=== PATIENT | female | born 1970 | race American Indian/Alaskan Native ===

== ENCOUNTER 2017-04-20 19:14 | Emergency (ER) | payer SELFPAY ==
[2017-04-20 19:14] VITALS: BMI 40.8
[2017-04-20 19:46] VITALS: TEMP 99.1
--- NOTE | 2017-04-20 20:19 | ED PDOC ---
Arrival/HPI - General Historian: Patient - General Chief Complaint: Weakness/Neurological Deficit Time Seen by Provider: 04/20/17 19:47 - History of Present Illness Narrative History of Present Illness (Text): 04/20/17 20:17 46yo female with PMhx of Anemia present with complaint of right wrist pain that radiates to her elbow with intermittent paresthesia x weeks. Also reports b/l foot/ankle tingling and numbness x 3days. 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 Right hand pain is usually worse while typing. She denies trauma, focal weakness, aphasia, chest pain, SOB, recent travel, OCP use, recent surgery, any other complaint. (Thom,Hadley A) Past Medical History - Provider Review Nursing Documentation Reviewed: Yes - Past History Past History: No Previous - Cardiac Hx Cardiac Disorders: No - Pulmonary Hx Respiratory Disorders: No - Neurological Hx Neurological Disorder: No - HEENT Hx HEENT Disorder: No - Renal Hx Renal Disorder: No - Endocrine/Metabolic Hx Endocrine Disorders: No - Hematological/Oncological Hx Blood Disorders: No - Integumentary Hx Dermatological Disorder: No - Musculoskeletal/Rheumatological Hx Falls: No - Gastrointestinal Hx Gastrointestinal Disorders: No - Psychiatric Hx Psychophysiologic Disorder: No Hx Depression: (pt denies) Hx Substance Use: No Other/Comment: pt denies feeling deoressed when questioned - Surgical History Hx Section: Yes Family/Social History - Physician Review Nursing Documentation Reviewed: Yes Family/Social History: Unknown Family HX Smoking Status: Never Smoked Hx Alcohol Use: No Hx Substance Use: No Allergies/Home Meds Allergies/Adverse Reactions: Allergies No Known Allergies Allergy (Verified 02/23/16 10:31) Review of Systems - Physician Review All systems were reviewed & negative as marked: Yes - Review of Systems Constitutional: Normal Eyes: Normal ENT: Normal Respiratory: Normal Cardiovascular: Normal Gastrointestinal: Normal Genitourinary Female: Normal Musculoskeletal: Arthralgias (Right hand pain) Skin: Normal Neurological: Normal Endocrine: Normal Hemo/Lymphatic: Normal Psychiatric: Normal Physical Exam Vital Signs Reviewed: Yes Temperature: Afebrile Blood Pressure: Normal Pulse: Regular Respiratory Rate: Normal Appearance: Positive for: Well-Appearing, Non-Toxic, Comfortable Pain Distress: None Mental Status: Positive for: Alert and Oriented X 3 - Systems Exam Head: Present: Atraumatic, Normocephalic Pupils: Present: PERRL Extroacular Muscles: Present: EOMI Conjunctiva: Present: Normal Mouth: Present: Moist Mucous Membranes Neck: Present: Normal Range of Motion Respiratory/Chest: Present: Clear to Auscultation, Good Air Exchange. No: Respiratory Distress, Accessory Muscle Use Cardiovascular: Present: Regular Rate and Rhythm, Normal S1, S2. No: Murmurs Abdomen: Present: Normal Bowel Sounds. No: Tenderness, Distention, Peritoneal Signs Back: Present: Normal Inspection Upper Extremity: Present: Normal ROM, NORMAL PULSES, Tenderness (Mild tenderness over right dorsal wrist), Neurovascularly Intact, Capillary Refill < 2s, Other (Negative Tinnel and phalen test). No: Cyanosis, Edema, Swelling, Erythema, Temperature Abnormalties, Deformity Lower Extremity: Present: Normal Inspection, NORMAL PULSES, Normal ROM, Neurovascularly Intact. No: Edema, CALF TENDERNESS, Cyanosis, Tenderness, Swelling, Erythema, Deformity, Temperature Abnormalties Neurological: Present: GCS=15, CN II-XII Intact, Speech Normal, Motor Func Grossly Intact, Normal Sensory Function, Normal Cerebellar Funct, Norm Deep Tendon Reflexes, Gait Normal, Other (No focal neurological deficit) Skin: Present: Warm, Dry, Normal Color. No: Rashes Psychiatric: Present: Alert, Oriented x 3, Normal Insight, Normal Concentration Vital Signs Temp Pulse Resp BP Pulse Ox 04/20/17 22:49 76 16 160/93 H 98 04/20/17 21:23 80 17 100 04/20/17 19:42 99.1 F 92 H 18 158/88 H 99 Medical Decision Making ED Course and Treatment: I was available for consultation during PA evaluation. The chart was reviewed by me, and I agree with disposition. The documented history was done by the physician associate director of nursing. The documented physical exam was done by the physician associate director of nursing. The documented procedures were done by the physician associate director of nursing. (Paulino Miranda) 04/21/17 01:01 PT presented for stated history. She was hemodynamically stable in ED. Neurological intact. she was hypokalemic and potassium was repleted. she denies trauma and calf pain, so xray and US was not done at this time. Right hand brace was placed and pt was advised to use the brace while working. Referred to the clinic. [facility] ED for any new or worsening symptoms. (Thom Hadley A) - Lab Interpretations Lab Results: 04/20/17 20:23 04/20/17 20:23 Lab Results 04/20/17 20:23: Sodium 139, Potassium 2.7 L*, Chloride 100, Carbon Dioxide 27, Anion Gap 15, BUN 12, Creatinine 0.8, Est GFR ( Amer) > 60, Est GFR (Non- Af Amer) > 60, Random Glucose 105, Calcium 9.0, Total Bilirubin 0.2, AST 25, ALT 23, Alkaline Phosphatase 67, Total Protein 7.9, Albumin 3.9, Globulin 4.0, Albumin/Globulin Ratio 1.0 L 04/20/17 20:23: WBC 7.7 D, RBC 4.38, Hgb 9.5 L, Hct 30.0 L, MCV 68.5 L, MCH 21.7 L, MCHC 31.7, RDW 17.6 H, Plt Count 406, MPV 10.2, Gran % 49.1 L, Lymph % ( Auto) 42.2 H, [place] % (Auto) 5.3, Eos % (Auto) 3.1, Baso % (Auto) 0.3, Gran # 3.78, Lymph # 3.3, [place] # 0.4, Eos # 0.2, Baso # 0.02 - Medication Orders Current Medication Orders: Discontinued Medications Magnesium Sulfate/Dextrose (Magnesium Sulfate 1 Gm/100 Ml D5w) 1 gm in 100 mls @ 100 mls/hr IVPB ONCE ONE Stop: 04/20/17 21:47 Last Admin: 04/20/17 21:24 Dose: 100 mls/hr Potassium Chloride (Potassium Chloride 20 Meq/100 Ml) 20 meq in 100 mls @ 50 mls/hr IVPB ONCE ONE Stop: 04/20/17 22:45 Last Admin: 04/20/17 21:24 Dose: 50 mls/hr Disposition/Present on Arrival - Present on Arrival Any Indicators Present on Arrival: No History of DVT/PE: No History of Uncontrolled Diabetes: No Urinary Catheter: No History of Decub. Ulcer: No History Surgical Site Infection Following: None - Disposition Have Diagnosis and Disposition been Completed?: Yes Disposition Time: 00:05 Patient Plan: Discharge - Disposition Diagnosis: Hypokalemia, Paresthesia, Wrist pain Disposition: HOME/ ROUTINE Patient Problems: Current Active Problems Problem Status Onset Hypokalemia Acute Paresthesia Acute Wrist pain Acute Condition: STABLE Discharge Instructions (ExitCare): Hypokalemia (ED) Additional Instructions: Follow up with the clinic Use compression stockings and keep leg elevated Return to ED for any new or worsening symptoms Referrals: [facility] [place] - Follow up with primary
[2017-04-20 20:30] LABS: ADD MANUAL DIFF? NO
[2017-04-20 20:42] LABS: ALKALINE PHOSPHATASE 67 U/L (38-133); ALT/SGPT 23 U/L (7-56); AST/SGOT 25 U/L (15-39); BILIRUBIN,TOTAL 0.2 mg/dL (0.2-1.3); BLOOD UREA NITROGEN 12 mg/dL (7-21); CARBON DIOXIDE 27 mmol/L (21-33); CHLORIDE 100 mmol/L (98-107); GFR AFRICAN-AMERICAN > 60; GLUCOSE,RANDOM 105 mg/dL (70-110); SODIUM 139 mmol/L (132-148); TOTAL PROTEIN 7.9 g/dL (5.8-8.3)
[2017-04-20 20:43] LABS: POTASSIUM 2.7 mmol/L (3.6-5.0)
[2017-04-20] MEDS ORDERED: Magnesium Sulfate 1 gm in D5W 1 GM/100 ML BAG IVPB ONE (20:48)
[2017-04-20 21:07] LABS: BASO # 0.02 K/mm3 (0.0-2.0); BASO % 0.3 % (0.0-3.0); EOS # 0.2 (0.0-0.7); EOS % 3.1 % (1.5-5.0); GRAN # 3.78 (1.4-6.5); GRAN % 49.1 % (50.0-68.0); LYMPH # 3.3 (1.2-3.4); LYMPH % 42.2 % (22.0-35.0); MEAN CELL VOLUME 68.5 fL (80.0-105.0); MEAN CORPUSCULAR HEMOGLOBIN 21.7 pg (25.0-35.0); MEAN CORPUSCULAR HGB CONC 31.7 g/dl (31.0-37.0); MEAN PLATELET VOLUME 10.2 fl (7.0-11.0); MONO # 0.4 (0.1-0.6); MONO % 5.3 % (1.0-6.0); PLATELET COUNT 406 10^3/uL (120.0-450.0); RED CELL DISTRIBUTION WIDTH 17.6 % (11.5-14.5); WHITE BLOOD COUNT 7.7 10^3/ul (4.5-11.0)
[2017-04-20 22:51] VITALS: BP 160/93; PULSE 76; RESP 16; O2SAT 98
== END 2017-04-21 00:06 | disposition home or self-care (01) ==
LOC: ED 19:14
DX: E87.6 Hypokalemia (principal); R20.2 Paresthesia of skin; M25.531 Pain in right wrist
CPT/HCPCS: 80053; 85025; 96361; 96365; 99285; J3475; J3480